=== PATIENT | male | born 1940 | race American Indian/Alaskan Native ===

== ENCOUNTER 2018-01-30 04:30 | Emergency (ER) | payer MEDICARE ==
[2018-01-30] MEDS ORDERED: TYLENOL ONE ×2 (04:47→09:48)
[2018-01-30] MEDS ORDERED: TYLENOL PO ONE (04:48)
--- NOTE | 2018-01-30 08:27 | Cat Scan Report ---
FINAL REPORT EXAM: CT HEAD/BRAIN WO CON HISTORY: OSORIO, Htn. TECHNIQUE: CT imaging is acquired through the brain without contrast. Transaxial reformations are provided. PRIORS: None. FINDINGS: Ventricles and CSF spaces are proportionately enlarged, consistent with parenchymal atrophy. Scattered deep and subcortical white matter hypodense foci are confluent in some areas and are compatible with microvascular angiopathy. No acute intracranial hemorrhage or mass effect. No skull fracture. No significant abnormality within the imaged paranasal sinuses or mastoid air cells. IMPRESSION: No acute intracranial abnormality. 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
--- NOTE | 2018-01-30 09:03 | Emergency Department Report ---
Blank Doc - Documentation Documentation: This is a 78-year-old male here reports that he is having severe headache since yesterday, shortness of breath and pain is radiated on his legs. He reports this has been going on for 5 hours prior to coming to the emergency room. Pain is 10 out of 10 and achy tingly. He does have a history of back pain and headache. He is also complaining of visual problems. He has a history of migraine headaches, hypertension and asthma. Patient does have a primary care physician. He denies any fever or chills. Denies any neck pain or stiffness. Denies any nausea or vomiting. Patient denies any head injury or fall. Physical exam Mini neurological :Patient is alert and oriented 3, GCS of 15. CV: S1, S2. Heart rate is at 59 bpm. He is a febrile and blood pressure is 190 /94 initially and now is 159/84. Lungs: CTAB with normal work of breathing Plan Patient to be seen by attendant physician in emergency room. Labs order CT scan This was discussed with patient that he is in agreement.
[2018-01-30] MEDS ORDERED: ZOFRAN IV ONE (09:19)
[2018-01-30] MEDS ORDERED: LASIX IV ONE (09:19)
[2018-01-30] MEDS ORDERED: MORPHINE IV ONE (09:19)
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
--- NOTE | 2018-01-30 09:40 | XRay Report ---
FINAL REPORT EXAM: XR CHEST ROUTINE 2V HISTORY: SOB TECHNIQUE: Frontal and lateral views of the chest. PRIORS: None currently available. FINDINGS: Mild cardiomegaly. Aortic calcifications. Lungs appear hyperinflated and may be related to reactive airway disease or COPD. No pneumothorax. No consolidation. No effusion. There are no suspicious osseous lesions. Degenerative changes are present within the spine. IMPRESSION: COPD. Otherwise, no acute cardiopulmonary findings. Mild cardiomegaly.
[2018-01-30 10:58] LABS: Hematocrit 43.7 % (35.5-45.6); Hemoglobin 14.6 gm/dl (11.8-15.2); Mean Corpuscular HGB Conc 34 % (32-34); Mean Corpuscular Hemoglobin 28 pg (28-32); Mean Corpuscular Volume 83 fl (84-94); Platelet Count 146 K/mm3 (140-440); Red Blood Count 5.25 M/mm3 (3.65-5.03); Red Cell Distribution Width 15.4 % (13.2-15.2)
[2018-01-30 11:06] LABS: Basophils # (Auto) 0.1 K/mm3 (0.0-0.1); Basophils % (Auto) 0.8 % (0.0-1.8); Eosinophils # (Auto) 0.2 K/mm3 (0.0-0.4); Eosinophils % (Auto) 2.4 % (0.0-4.3); Lymphocytes # (Auto) 1.4 K/mm3 (1.2-5.4); Lymphocytes % (Auto) 19.8 % (13.4-35.0); Monocytes # (Auto) 0.6 K/mm3 (0.0-0.8); Monocytes % (Auto) 8.8 % (0.0-7.3)
[2018-01-30 11:17] LABS: Alanine Aminotransferase 19 units/L (7-56); Albumin 4.2 g/dL (3.9-5); BUN/Creatinine Ratio 13; Blood Urea Nitrogen 10 mg/dL (9-20); Calcium 9.1 mg/dL (8.4-10.2); Hemolysis Index 6
[2018-01-30 12:21] VITALS: BP 155/90
== END 2018-01-30 13:00 | disposition home or self-care (01) ==
LOC: ED 04:30
DX: R51 Headache (principal); R06.02 Shortness of breath; I10 Essential (primary) hypertension; J45.909 Unspecified asthma, uncomplicated
CPT/HCPCS: 36415; 70450; 71046; 80053; 83735; 83880; 84484; 85025; 93005; 93010; 96374; 96375; 99284; J1940; J2270; J2405

== ENCOUNTER 2021-06-10 07:35 | Emergency (ER) | payer MEDICARE ==
[2021-06-10] MEDS ORDERED: FAMOTIDINE 20 MG/2 ML INJ IV ONE (07:44)
--- NOTE | 2021-06-10 07:48 | Emergency Department Report ---
HPI - General Chief Complaint: Allergic Reaction Time Seen by Provider: 06/10/21 07:44 - HPI HPI: Patient presents by EMS secondary to an allergic reaction. He takes lisinopril. He took his regular lisinopril dose last night. This morning he woke up with swelling in the tongue and lip. He was concerned that this might be reaction to his medication. There was no known allergen exposure otherwise. He had not changed foods. There was no change in laundry soap or bath soap. He had not used any type of new product. There was no new pet exposure. EMS was called. They transported the patient. During transport, they did administer epinephrine as well as Benadryl. Patient states that he feels slightly better upon arrival. He has no difficulty breathing. He does not feel short of breath. He states he is not wheezing. He however did state that he used his inhaler this morning. ED Past Medical Hx - Past Medical History Hx Hypertension: Yes Hx Headaches / Migraines: Yes Hx Asthma: Yes - Family History Family history: hypertension - Social History Smoking Status: Never Smoker Substance Use Type: None - Medications Home Medications: Home Medications Medication Instructions Recorded Confirmed Last Taken Type Ondansetron [Zofran Odt] 4 mg PO Q8HR PRN #14 tab.rapdis 01/30/18 Unknown Rx traMADoL [Ultram] 50 mg PO Q6HR PRN #14 tablet 01/30/18 Unknown Rx traMADoL [Ultram] 50 mg PO Q6HR PRN #14 tablet 01/30/18 Unknown Rx Amlodipine Besylate [Norvasc] 5 mg PO DAILY #30 tablet 06/10/21 Unknown Rx Famotidine [Pepcid] 20 mg PO BID #10 tablet 06/10/21 Unknown Rx Prednisone [predniSONE 10 mg 10 mg PO .TAPER #1 tab.ds.pk 06/10/21 Unknown Rx (6-Day Pack, 21 Tabs)] ED Review of Systems ROS: Stated complaint: ALLERGIC REACTION Other details as noted in HPI Comment: All other systems reviewed and negative Constitutional: denies: fever Eyes: denies: eye pain ENT: as per HPI. denies: throat pain Respiratory: denies: cough Cardiovascular: denies: chest pain Endocrine: denies: unexplained weight loss Gastrointestinal: denies: abdominal pain Genitourinary: denies: dysuria Musculoskeletal: denies: back pain Skin: denies: rash Neurological: denies: headache Hematological/Lymphatic: denies: easy bruising Physical Exam - Physical Exam Vital Signs: Vital Signs 06/10/21 07:41 Pulse Rate 79 Respiratory 15 Rate Blood Pressure 165/88 [Left] O2 Sat by Pulse 99 Oximetry General: Well-developed, well-nourished male in no distress. He is cooperative. He appears his stated age. Physical Exam: HEENT: atraumatic. There is edema involving the left upper lip consistent with angioedema. There is angioedema involving the left lateral aspect of the tongue. Oropharynx is clear. There is no evidence of airway compromise. There is no purulent drainage. Pupils were equal round reactive to light. Extraocular muscles are intact. There is no scleral icterus. Ears appear normal. Neck: Supple without stridor or lymphadenopathy. Heart: Regular rate and rhythm. Lungs: Clear bilaterally. Abdomen: Soft and nontender. It is protuberant. There is no organomegaly. There is no pulsatile mass. Back: No CVA tenderness. Extremities: 2+ pitting edema bilaterally. No calf tenderness. Pulses are equal and symmetric. No rash. Skin: No petechial or purpuric rash Neurologic: Patient is awake and appropriate. He is oriented x3. There is no gross focal motor or sensory deficits. He has no pronator drift or dysdiadochokinesia. ED Course Vital Signs 06/10/21 07:41 Pulse Rate 79 Respiratory 15 Rate Blood Pressure 165/88 [Left] O2 Sat by Pulse 99 Oximetry - Reevaluation(s) Reevaluation #1: 06/10/21 07:35 EMS was met upon arrival. IV had been started. Medications were ordered. Old records reviewed. Reevaluation #2: 06/10/21 10:16 There was no further decompensation or swelling. Patient was discharged ED Medical Decision Making - Medical Decision Making patient presented with angioedema secondary to RENAY inhibitor. This is a presumption, but the patient has no other allergen exposure. At this time, patient will be discharged. There is no evidence of airway compromise. We have discussed outpatient management. Patient will be taken off of his lisinopril. He is allergic to RENAY inhibitor is now and has been informed of this update. Critical Care Time: No Critical care attestation.: If time is entered above; I have spent that time in minutes in the direct care of this critically ill patient, excluding procedure time. 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 Do not take any RENAY inhibitor. Return for problems. Follow-up with your regular doctor for recheck. Avoid salt. Prescriptions: Amlodipine Besylate [Norvasc] 5 mg PO DAILY #30 tablet Famotidine [Pepcid] 20 mg PO BID #10 tablet Prednisone [predniSONE 10 mg (6-Day Pack, 21 Tabs)] 10 mg PO .TAPER #1 tab.ds.pk
[2021-06-10] MEDS ORDERED: methylPREDNISolone Sod Suc 125 MG in SODIUM CHLORIDE 0.9% 100 ML IV ONE (08:30)
[2021-06-10 10:54] VITALS: BP 133/78
== END 2021-06-10 11:10 | disposition home or self-care (01) ==
LOC: ED 07:35
DX: T78.3XXA Angioneurotic edema, initial encounter (principal); T46.4X5A Adverse effect of angiotensin-converting-enzyme inhibitors, initial encounter; I10 Essential (primary) hypertension; G43.909 Migraine, unspecified, not intractable, without status migrainosus; J45.909 Unspecified asthma, uncomplicated; Y92.89 Other specified places as the place of occurrence of the external cause
CPT/HCPCS: 96365; 96375; 99283; J2930; J3490

== ENCOUNTER 2021-07-12 22:04 | Observation (INO) | payer MEDICARE ==
--- NOTE | 2021-07-12 22:26 | Emergency Department Report ---
HPI - General Chief Complaint: Syncope Time Seen by Provider: 07/12/21 22:21 - HPI HPI: 81-year-old -[place]i male presents to the emergency department via EMS from home after the patient had a witnessed syncopal episode. He was playing darts with family when they saw him suddenly just collapsed. I took the initial EMS call and was told that the patient was only responsive to painful stimuli at that time. Upon arrival to the emergency department he is more awake and alert, oriented, AAO x3. He now just complains of shortness of breath. He has a history of seizures but says he has not had any seizure "in a long time." The patient was seen here about 1 month ago secondary to RENAY inhibitor induced angioedema. The patient does admit to drinking alcohol this evening but says that he did not do it in any excessive amount. He denies any illicit drug use. He is vaccinated for COVID-19. ED Past Medical Hx - Past Medical History Hx Hypertension: Yes Hx Headaches / Migraines: Yes Hx Asthma: Yes - Surgical History Past Surgical History?: No - Social History Smoking Status: Never Smoker Substance Use Type: None - Medications Home Medications: Home Medications Medication Instructions Recorded Confirmed Last Taken Type Ondansetron [Zofran Odt] 4 mg PO Q8HR PRN #14 tab.rapdis 01/30/18 Unknown Rx traMADoL [Ultram] 50 mg PO Q6HR PRN #14 tablet 01/30/18 Unknown Rx traMADoL [Ultram] 50 mg PO Q6HR PRN #14 tablet 01/30/18 Unknown Rx Amlodipine Besylate [Norvasc] 5 mg PO DAILY #30 tablet 06/10/21 Unknown Rx Famotidine [Pepcid] 20 mg PO BID #10 tablet 06/10/21 Unknown Rx Prednisone [predniSONE 10 mg 10 mg PO .TAPER #1 tab.ds.pk 06/10/21 Unknown Rx (6-Day Pack, 21 Tabs)] ED Review of Systems ROS: Stated complaint: SYNCOPE Other details as noted in HPI Comment: All other systems reviewed and negative Constitutional: denies: chills, fever Eyes: denies: eye pain, vision change ENT: denies: ear pain, throat pain Respiratory: shortness of breath. denies: cough Cardiovascular: syncope. denies: chest pain Gastrointestinal: denies: abdominal pain, vomiting Genitourinary: denies: dysuria, discharge Musculoskeletal: denies: back pain, arthralgia Skin: denies: rash, lesions Neurological: denies: headache, numbness Physical Exam - Physical Exam Physical Exam: GENERAL: The patient is well-developed well-nourished. HENT: Normocephalic. Atraumatic. Patient has moist mucous membranes. EYES: Extraocular motions are intact. Pupils equal reactive to light bilaterally. NECK: Supple. Trachea is midline. CHEST/LUNGS: Coarse breath sounds. There is some tachypnea. HEART/CARDIOVASCULAR: Regular. There is no tachycardia. There is no murmur. ABDOMEN: Abdomen is soft, nontender. Patient has normal bowel sounds. There is no abdominal distention. SKIN: Skin is warm and dry. NEURO: The patient appears fatigued but otherwise is awake, alert, oriented and cooperative. The patient has no focal neurologic deficits. Normal speech. Cranial nerves II through XII grossly intact. No facial asymmetry. MUSCULOSKELETAL: There is no tenderness or deformity. There is no limitation range of motion. ED Medical Decision Making - Lab Data Result diagrams: 07/12/21 23:06 07/12/21 23:06 Lab Results 07/12/21 07/12/21 07/12/21 Range/Units 23:06 23:06 23:06 WBC 9.5 (4.5-11.0) K/mm3 RBC 4.77 (3.65-5.03) M/mm3 Hgb 12.7 (11.8-15.2) gm/dl Hct 40.2 (35.5-45.6) % MCV 84 (84-94) fl MCH 27 L (28-32) pg MCHC 32 (32-34) % RDW 15.0 (13.2-15.2) % Plt Count 240 (140-440) K/mm3 Lymph % (Auto) 17.3 (13.4-35.0) % [place] % (Auto) 6.5 (0.0-7.3) % Eos % (Auto) 0.7 (0.0-4.3) % Baso % (Auto) 0.7 (0.0-1.8) % Lymph # (Auto) 1.6 (1.2-5.4) K/mm3 [place] # (Auto) 0.6 (0.0-0.8) K/mm3 Eos # (Auto) 0.1 (0.0-0.4) K/mm3 Baso # (Auto) 0.1 (0.0-0.1) K/mm3 Seg Neutrophils % 74.8 H (40.0-70.0) % Seg Neutrophils # 7.1 (1.8-7.7) K/mm3 D-Dimer 459.71 H (0-234) ng/mlDDU Sodium 141 (137-145) mmol/L Potassium 3.8 (3.6-5.0) mmol/L Chloride 100.1 (98-107) mmol/L Carbon Dioxide 25 (22-30) mmol/L Anion Gap 20 mmol/L BUN 13 (9-20) mg/dL Creatinine 1.3 (0.8-1.3) mg/dL Estimated GFR > 60 ml/min BUN/Creatinine Ratio 10 % Glucose 135 H (75-100) mg/dL Calcium 10.1 (8.4-10.2) mg/dL Total Bilirubin < 0.20 (0.1-1.2) mg/dL AST 19 (5-40) units/L ALT 20 (7-56) units/L Alkaline Phosphatase 82 (35-129) units/L Ammonia (25-60) umol/L Troponin T < 0.010 (0.00-0.029) ng/mL NT-Pro-B Natriuret Pep (0-900) pg/mL Total Protein 6.7 (6.3-8.2) g/dL Albumin 4.2 (3.9-5) g/dL Albumin/Globulin Ratio 1.7 % TSH (0.270-4.200) mlU/mL Free T4 (0.76-1.46) ng/dL Plasma/Serum Alcohol (0-0.07) % 07/12/21 07/12/21 07/12/21 Range/Units 23:06 23:06 23:06 WBC (4.5-11.0) K/mm3 RBC (3.65-5.03) M/mm3 Hgb (11.8-15.2) gm/dl Hct (35.5-45.6) % MCV (84-94) fl MCH (28-32) pg MCHC (32-34) % RDW (13.2-15.2) % Plt Count (140-440) K/mm3 Lymph % (Auto) (13.4-35.0) % [place] % (Auto) (0.0-7.3) % Eos % (Auto) (0.0-4.3) % Baso % (Auto) (0.0-1.8) % Lymph # (Auto) (1.2-5.4) K/mm3 [place] # (Auto) (0.0-0.8) K/mm3 Eos # (Auto) (0.0-0.4) K/mm3 Baso # (Auto) (0.0-0.1) K/mm3 Seg Neutrophils % (40.0-70.0) % Seg Neutrophils # (1.8-7.7) K/mm3 D-Dimer (0-234) ng/mlDDU Sodium (137-145) mmol/L Potassium (3.6-5.0) mmol/L Chloride (98-107) mmol/L Carbon Dioxide (22-30) mmol/L Anion Gap mmol/L BUN (9-20) mg/dL Creatinine (0.8-1.3) mg/dL Estimated GFR ml/min BUN/Creatinine Ratio % Glucose (75-100) mg/dL Calcium (8.4-10.2) mg/dL Total Bilirubin (0.1-1.2) mg/dL AST (5-40) units/L ALT (7-56) units/L Alkaline Phosphatase (35-129) units/L Ammonia 18.0 L (25-60) umol/L Troponin T (0.00-0.029) ng/mL NT-Pro-B Natriuret Pep 67.33 (0-900) pg/mL Total Protein (6.3-8.2) g/dL Albumin (3.9-5) g/dL Albumin/Globulin Ratio % TSH 11.170 H (0.270-4.200) mlU/mL Free T4 (0.76-1.46) ng/dL Plasma/Serum Alcohol (0-0.07) % 07/12/21 07/13/21 Range/Units 23:06 00:21 WBC (4.5-11.0) K/mm3 RBC (3.65-5.03) M/mm3 Hgb (11.8-15.2) gm/dl Hct (35.5-45.6) % MCV (84-94) fl MCH (28-32) pg MCHC (32-34) % RDW (13.2-15.2) % Plt Count (140-440) K/mm3 Lymph % (Auto) (13.4-35.0) % [place] % (Auto) (0.0-7.3) % Eos % (Auto) (0.0-4.3) % Baso % (Auto) (0.0-1.8) % Lymph # (Auto) (1.2-5.4) K/mm3 [place] # (Auto) (0.0-0.8) K/mm3 Eos # (Auto) (0.0-0.4) K/mm3 Baso # (Auto) (0.0-0.1) K/mm3 Seg Neutrophils % (40.0-70.0) % Seg Neutrophils # (1.8-7.7) K/mm3 D-Dimer (0-234) ng/mlDDU Sodium (137-145) mmol/L Potassium (3.6-5.0) mmol/L Chloride (98-107) mmol/L Carbon Dioxide (22-30) mmol/L Anion Gap mmol/L BUN (9-20) mg/dL Creatinine (0.8-1.3) mg/dL Estimated GFR ml/min BUN/Creatinine Ratio % Glucose (75-100) mg/dL Calcium (8.4-10.2) mg/dL Total Bilirubin (0.1-1.2) mg/dL AST (5-40) units/L ALT (7-56) units/L Alkaline Phosphatase (35-129) units/L Ammonia (25-60) umol/L Troponin T (0.00-0.029) ng/mL NT-Pro-B Natriuret Pep (0-900) pg/mL Total Protein (6.3-8.2) g/dL Albumin (3.9-5) g/dL Albumin/Globulin Ratio % TSH (0.270-4.200) mlU/mL Free T4 0.86 (0.76-1.46) ng/dL Plasma/Serum Alcohol 0.04 (0-0.07) % - EKG Data -: EKG Interpreted by Nv EKG shows normal: sinus rhythm (PVCs), axis, intervals, QRS complexes, ST-T waves Rate: normal - EKG Data When compared to previous EKG there are: no significant change Interpretation: unchanged when compared t (01/30/18) - Radiology Data Radiology results: report reviewed CHEST 1 VIEW 07/12/2021 10:42 PM INDICATION / CLINICAL INFORMATION: SOB. COMPARISON: 01/30/2022 FINDINGS: SUPPORT DEVICES: None. HEART / MEDIASTINUM: No significant abnormality. LUNGS / PLEURA: No significant pulmonary or pleural abnormality. No pneumothorax. ADDITIONAL FINDINGS: No significant additional findings. IMPRESSION: 1. No acute findings. CT HEAD WITHOUT CONTRAST INDICATION / CLINICAL INFORMATION: Syncope. TECHNIQUE: All CT scans at this location are performed using CT dose reduction for ALARA by means of automated exposure control. COMPARISON: 01/30/2018 FIN DINGS: Ventricles are normal in size without midline shift or mass effect. No acute intracranial hemorrhage. Schuster-white matter differentiation appears normal. Mild artifact throughout the examination visualized sinuses are clear. ADDITIONAL FINDINGS: None. IMPRESSION: 1. No acute intracranial abnormality. Nonspecific white matter change in periventricular and central white matter CTA CHEST WITH CONTRAST INDICATION / CLINICAL INFORMATION: Syncope, elevated dimer OMNI 350 100 ML. TECHNIQUE: Axial CT images were obtained through the chest after injection of IV contrast. 3 plane MIP and/or 3D reconstructions were produced. All CT scans at this location are performed using CT dose reduction for ALARA by means of automated exposure control. COMPARISON: None available. FINDINGS: Pulmonary arteries are patent without filling defect or evidence for PTE. There is dense opacification and densities within bilateral lower lungs and right middle lobe. Some nodular densities appear to represent infiltrates infection. Fluid/thickening of the distal esophagus ADDITIONAL FINDINGS: None. UPPER ABDOMEN: No acute findings. SKELETAL STRUCTURES: No significant osseous abnormality. IMPRESSION: 1. No CT evidence for pulmonary embolism. 2. Bilateral lower lobe infiltrates left greater than right - Medical Decision Making This patient initially presented to the emergency department after he had a witnessed syncopal episode and was "unresponsive" in route with EMS. However, by the time he arrived to our emergency department the patient is awake and oriented, although he does still appear somewhat groggy. On examination he does not have any focal, motor or sensory deficits and his cranial nerves are intact. CT scan of the head without contrast does not show any hemorrhage, large vessel occlusion, or any other acute process. Chest x-ray does not show any pneumonia, pleural effusions, pneumothorax, widened mediastinum, or any other acute process. EKG does not show any morphology consistent with ST elevation myocardial infarction. All of a sudden the patient began saying that he was feeling short of breath. He was reevaluated and he did have bronchospasm. There was mild wheezing and some tachypnea. A dose of Decadron was ordered, as well as a nebulized breathing treatment with both albuterol and Atrovent. After completion of the nebulized treatment, the patient's respiratory status has somewhat improved. Labs have been mostly unremarkable except for an elevated and equivocal D-dimer level, and an elevated TSH level of about 11. With the unresponsive episode, shortness of breath, and elevated D-dimer level, the patient had a CT angiography of the chest. CT angiography of the chest shows bilateral basilar infiltrates concerning for pneumonia. Blood cultures have been sent and the patient has been started on antibiotics. Given the patient's advanced age and this unresponsive/syncopal episode, he will be admitted to the hospital for further evaluation and treatment. Despite the fact that the patient has been vaccinated for COVID-19, with the CT angiography findings and his episode of shortness of breath, the patient will be tested for COVID-19. He has been accepted for admission by the hospitalist, Dr. Ayala. Critical Care Time: No Critical care attestation.: If time is entered above; I have spent that time in minutes in the direct care of this critically ill patient, excluding procedure time. ED Disposition Clinical Impression: Syncope and collapse, Acute dyspnea, Suspected 2019 novel coronavirus infection Pneumonia Qualifiers: Pneumonia type: due to unspecified organism Laterality: bilateral Lung location: lower lobe of lung Qualified Code(s): J18.9 - Pneumonia, unspecified organism Disposition: ADMITTED INPATIENT Is pt being admited?: Yes Condition: Serious Time of Disposition: 03:08
--- NOTE | 2021-07-12 22:51 | Cat Scan Report ---
CT HEAD WITHOUT CONTRAST INDICATION / CLINICAL INFORMATION: Syncope. TECHNIQUE: All CT scans at this location are performed using CT dose reduction for ALARA by means of automated e xposure control. COMPARISON: 01/30/2018 FINDINGS: Ventricles are normal in size without midline shift or mass effect. No acute intracranial hemorrhage. Schuster-white matter differentiation appears normal. Mild artifact throughout the examination visualize d sinuses are clear. ADDITIONAL FINDINGS: None. IMPRESSION: 1. No acute intracranial abnormality. Nonspecific white matter change in periventricular and central white matter Signer Name: Carroll Still MD Signed: 07/12/2021 10:46 PM Workstation Name: [id number]
--- NOTE | 2021-07-12 23:11 | XRay Report ---
CHEST 1 VIEW 07/12/2021 10:42 PM INDICATION / CLINICAL INFORMATION: SOB. COMPARISON: 01/30/2022 FINDINGS: SUPPORT DEVICES: None. HEART / MEDIASTINUM: No significant abnormality. LUNGS / PLEURA: No significant pulmonary or pleural abnormality. No pneumothorax. ADDITIONAL FINDINGS: No significant additional findings. IMPRESSION: 1. No acute findings. Signer Name: Carroll Still MD Signed: 07/12/2021 11:06 PM Workstation Name: [id number]
[2021-07-12 23:43] LABS: Basophils # (Auto) 0.1 K/mm3 (0.0-0.1); Basophils % (Auto) 0.7 % (0.0-1.8); Eosinophils # (Auto) 0.1 K/mm3 (0.0-0.4); Eosinophils % (Auto) 0.7 % (0.0-4.3); Hematocrit 40.2 % (35.5-45.6); Hemoglobin 12.7 gm/dl (11.8-15.2); Lymphocytes # (Auto) 1.6 K/mm3 (1.2-5.4); Lymphocytes % (Auto) 17.3 % (13.4-35.0); Mean Corpuscular HGB Conc 32 % (32-34); Mean Corpuscular Volume 84 fl (84-94); Monocytes # (Auto) 0.6 K/mm3 (0.0-0.8); Monocytes % (Auto) 6.5 % (0.0-7.3); Platelet Count 240 K/mm3 (140-440); Red Blood Count 4.77 M/mm3 (3.65-5.03)
[2021-07-13 00:41] LABS: Alanine Aminotransferase 20 units/L (7-56); Albumin 4.2 g/dL (3.9-5); BUN/Creatinine Ratio 10; Blood Urea Nitrogen 13 mg/dL (9-20); Calcium 10.1 mg/dL (8.4-10.2); Hemolysis Index 28
[2021-07-13] MEDS ORDERED: IPRATROPIUM 0.02% NEBU 2.5 ML IH ONE (00:55)
[2021-07-13] MEDS ORDERED: ALBUTEROL 2.5 MG/3 ML NEBU IH ONE (00:55)
[2021-07-13] MEDS ORDERED: SODIUM CHLORIDE 0.9% 1000 ML 1,000 ML IV ONE (01:20)
[2021-07-13] MEDS ORDERED: SODIUM CHLORIDE 0.9% 1000 ML 1,000 ML ONE (01:20)
--- NOTE | 2021-07-13 03:03 | Cat Scan Report ---
CTA CHEST WITH CONTRAST INDICATION / CLINICAL INFORMATION: Syncope, elevated dimer OMNI 350 100 ML. TECHNIQUE: Axial CT images were obtained through the chest after injection of IV contrast. [address] P and/or 3D reconstructions were produced. All CT scans at this location are performed using CT dose reduction for ALARA by means of automated exposure control. COMPARISON: None available. FINDINGS: Pulmonary arteries are patent without filling defect or evidence for PTE. There is dense opacificatio n and densities within bilateral lower lungs and right middle lobe. Some nodular densities appear to represent infiltrates infection. Fluid/thickening of the distal esophagus ADDITIONAL FINDINGS: None. UPPER ABDOMEN: No acute findings. SKELETAL STRUCTURES: No significant osseous abnormality. IMPRESSION: 1. No CT evidence for pulmonary embolism. 2. Bilateral lower lobe infiltrates left greater than right Signer Name: Carroll Still MD Signed: 07/13/2021 2:58 AM Workstation Name: [id number]
[2021-07-13] MEDS ORDERED: dexAMETHasone 4 MG/ML VIAL IV ONE (03:06)
[2021-07-13] MEDS ORDERED: cefTRIAXone/NS 1 GM/50 ML 1 GM/50 ML BAG IV ONE (03:06)
[2021-07-13] MEDS ORDERED: ACETAMINOPHEN 325 MG TAB PO PRN (03:19)
[2021-07-13] MEDS ORDERED: MORPHINE 4 MG/1 ML INJ IV PRN (03:19)
[2021-07-13] MEDS ORDERED: MAGNESIUM HYDROXIDE (MOM) ORAL LIQD UDC PO PRN (03:19)
[2021-07-13] MEDS ORDERED: MORPHINE 2 MG/1 ML INJ IV PRN (03:19)
[2021-07-13] MEDS ORDERED: ONDANSETRON 4 MG/2 ML INJ IV PRN (03:19)
[2021-07-13] MEDS ORDERED: SODIUM CHLORIDE 0.9% 1000 ML 1,000 ML IV SCH (03:30)
--- NOTE | 2021-07-13 03:31 | History and Physical Report ---
History of Present Illness Date of examination: 07/13/21 Date of admission: 07/13/2021 Chief complaint: Syncope History of present illness: 81-year-old -[place] male with known history of seizure disorder, hypertension and asthma brought into the emergency room by EMS for evaluation of syncope. Patient was said to be playing with family when he suddenly collapsed. Upon arrival of EMS, patient was more alert and oriented and he complained of shortness of breath. Patient states he has not had any seizure activity in a long time. Patient was seen here few weeks ago for RENAY inhibitor induced angioedema. He denies any fever or chills, no nausea vomiting, no abdominal pain. Denies any chest pain, no headache or dizziness and no diaphoresis. Patient denies any sick contacts and no recent travel. Denies any contact with anyone with COVID- 19. Patient has been vaccinated against COVID-19. He admits that he has some alcohol earlier this evening. Work-up in the emergency room today, significant findings were that of mildly elevated D-dimer of 459. Chest x-ray shows no acute findings. CT angiogram of the chest shows bilateral lower lobe infiltrates left greater than right. Past History Past Medical History: hypertension, migraines, other (Asthma) Past Surgical History: No surgical history Social history: no significant social history Family history: no significant family history Medications and Allergies Allergies Allergy/AdvReac Type Severity Reaction Status Date / Time lisinopril Allergy Angioedema Verified 06/10/21 07:49 Home Medications Medication Instructions Recorded Confirmed Last Taken Type Ondansetron [Zofran Odt] 4 mg PO Q8HR PRN #14 tab.rapdis 01/30/18 Unknown Rx traMADoL [Ultram] 50 mg PO Q6HR PRN #14 tablet 01/30/18 Unknown Rx traMADoL [Ultram] 50 mg PO Q6HR PRN #14 tablet 01/30/18 Unknown Rx Amlodipine Besylate [Norvasc] 5 mg PO DAILY #30 tablet 06/10/21 Unknown Rx Famotidine [Pepcid] 20 mg PO BID #10 tablet 06/10/21 Unknown Rx Prednisone [predniSONE 10 mg 10 mg PO .TAPER #1 tab.ds.pk 06/10/21 Unknown Rx (6-Day Pack, 21 Tabs)] Active Meds: Active Medications Ceftriaxone Sodium (Rocephin/Ns 1 Gm/50 Ml) 1 gm in 50 mls @ 100 mls/hr IV ONCE ONE; Protocol Stop: 07/13/21 03:35 Review of Systems Constitutional: no fever, no chills Ears, nose, mouth and throat: no nasal congestion, no sore throat Cardiovascular: no chest pain, no palpitations Respiratory: no cough, no shortness of breath Gastrointestinal: no abdominal pain, no nausea, no vomiting, no diarrhea Genitourinary Male: no dysuria, no hematuria, no flank pain, no nocturia Musculoskeletal: no neck pain, no low back pain Integumentary: no rash, no pruritis Neurological: no syncope, no headaches, no confusion Psychiatric: no anxiety, no depression Endocrine: no polyphagia, no polydipsia, no polyuria, no nocturia Exam - Constitutional Vitals: Temp Pulse Resp BP Pulse Ox 85 17 139/74 94 07/13/21 02:52 07/13/21 02:52 07/13/21 02:52 07/13/21 02:16 General appearance: Present: mild distress, well-nourished - EENT Eyes: Present: PERRL, EOM intact. Absent: scleral icterus ENT: hearing intact, clear oral mucosa, dentition normal - Neck Neck: Present: supple, normal ROM - Respiratory Respiratory effort: normal Respiratory: bilateral: diminished - Cardiovascular Rhythm: regular Heart Sounds: Present: S1 & S2, rub. Absent: gallop, systolic murmur, diastolic murmur - Extremities Extremities: no ischemia, pulses intact, pulses symmetrical, No edema, normal temperature, normal color, Full ROM Peripheral Pulses: within normal limits - Abdominal General gastrointestinal: Present: soft, non-tender, non-distended, normal bowel sounds. Absent: mass - Integumentary Integumentary: Present: clear, warm, dry. Absent: rash - Musculoskeletal Musculoskeletal: strength equal bilaterally - Psychiatric Psychiatric: appropriate mood/affect, intact judgment & insight, memory intact - Neurologic Neurologic: CNII-XII intact, no focal deficits, moves all extremities HEART Score - HEART Score Troponin: Troponin T < 0.010 ng/mL (0.00-0.029) 07/12/21 23:06 Results - Labs CBC & Chem 7: 07/12/21 23:06 07/12/21 23:06 Labs: Abnormal lab results 07/12/21 07/12/21 07/12/21 Range/Units 23:06 23:06 23:06 MCH 27 L (28-32) pg Seg Neutrophils % 74.8 H (40.0-70.0) % D-Dimer 459.71 H (0-234) ng/mlDDU Glucose 135 H (75-100) mg/dL Ammonia (25-60) umol/L TSH (0.270-4.200) mlU/mL 07/12/21 07/12/21 Range/Units 23:06 23:06 MCH (28-32) pg Seg Neutrophils % (40.0-70.0) % D-Dimer (0-234) ng/mlDDU Glucose (75-100) mg/dL Ammonia 18.0 L (25-60) umol/L TSH 11.170 H (0.270-4.200) mlU/mL Assessment and Plan - Patient Problems (1) Acute dyspnea Current Visit: Yes Status: Acute Plan to address problem: Possibly secondary to underlying pneumonia. We will keep O2 saturation greater or equal to 92%. (2) Pneumonia Current Visit: Yes Status: Acute Qualifiers: Pneumonia type: due to unspecified organism Laterality: bilateral Lung location: lower lobe of lung Qualified Code(s): J18.9 - Pneumonia, unspecified organism Plan to address problem: Patient commenced on empiric IV antibiotics. Will await culture results. We will also check for COVID-19. (3) Suspected 2019 novel coronavirus infection Current Visit: Yes Status: Acute Plan to address problem: Will await COVID-19 testing. (4) Syncope and collapse Current Visit: Yes Status: Acute (5) DVT prophylaxis Current Visit: Yes Status: Acute Plan to address problem: Patient placed on subcutaneous heparin. (6) Full code status Current Visit: Yes Status: Acute Plan to address problem: Patient is full code.
[2021-07-13 04:13] LABS: C-Reactive Protein 1.4 mg/dL (0.00-1.30)
[2021-07-13] MEDS ORDERED: AZITHROMYCIN/NS 500 MG/250 ML 500 MG/250 ML BAG IV SCH ×2 (06:00)
--- NOTE | 2021-07-13 08:16 | Event Note ---
Date: 07/13/21 Patient seen and examined, no new complaints. 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 Will obtain cardiology eval, I could not see the ekg strip showing Afib which the ambulance noted Will also obtain Nephrology eval due to the AMS noted Bilateral Infiltrate ?Aspiration Pneumonia in addition to rule out COVID19 Elevated D.dimer- No CTA evidence of PE Eval lower ext doppler
[2021-07-13] MEDS: amLODIPine 5 MG TAB PO SCH (10:48)
[2021-07-13] MEDS: FAMOTIDINE 20 MG TAB PO SCH ×2 (10:48→22:11)
[2021-07-13] MEDS: cefTRIAXone/NS 2 GM/100 ML 2 GM/100 ML BAG IV SCH (14:00)
--- NOTE | 2021-07-13 21:58 | Consultation ---
DATE OF CONSULTATION: 07/13/2021 HISTORY OF PRESENT ILLNESS: The patient is an 81-year-old male with a history of hypertension and asthma as well as venous insufficiency, who had a witnessed syncopal episode at home. He describes some near syncopal episodes in the recent past. He states that when he tries to do things he gets dizzy and diaphoretic. He does not describe any orthostatic symptoms, chest pain, palpitations or history of any previous type of heart disease. The blood pressure has been under fairly good control. It has been chronic and not too severe. He had a seizure disorder years ago. He did not describe any sleep disorders. PAST HISTORY: Hypertension, migraines, asthma. No history of smoking. He is known to Dr. Felix. He has chronic lower extremity swelling, and he has had venous insufficiency therapy at my office. He describes a negative cardiac workup in the past. ALLERGIES: LISINOPRIL, which caused angioedema. OPERATION: None. SOCIAL HISTORY: Smoking, none. Alcohol, no heavy use. MEDICATIONS: See the nurse's list. FAMILY HISTORY: Unremarkable. REVIEW OF SYSTEMS: No other complaints or medical problems. PHYSICAL EXAMINATION: GENERAL: Well developed, significantly overweight, no acute distress. Alert, oriented, cooperative mental status normal. EYES, NOSE, AND THROAT: Unremarkable. NECK: Supple, no masses. There is jugular venous distention. No bruits LUNGS: Diminished breath sounds, no rales or rhonchi. HEART: Regular rhythm. Grade 2 systolic murmur. S1 and S2 are diminished. ABDOMEN: Soft, nontender, no masses. EXTREMITIES: No cyanosis, clubbing. There is 1+ lower extremity edema. Pulses are intact, but diminished. NEUROLOGICAL: Symmetrical. DIAGNOSTIC DATA: EKG not available at the moment. IMPRESSION: 1. Syncope and episodes of near syncope: Rule out orthostatic hypotension, arrhythmias, aortic stenosis. 2. Abnormal chest x-ray. The patient has been treated for possible COVID pneumonia. He describes some mild congestion in recent past, but otherwise his pulmonary symptoms are chronic. 3. Hypertension. 4. Asthma. 5. Obesity. 6. Chronic venous insufficiency. 7. Systolic murmur. 8. History of migraines. PLAN: Review office records. Monitor rhythm. Check orthostatics, echocardiogram. Thanks for this consultation. TID: [id number] RECEIPT: [id number] BRODY/CIERRA
[2021-07-14 07:36] LABS: Basophils % (Auto) 0.1 % (0.0-1.8); Hematocrit 37.1 % (35.5-45.6); Hemoglobin 11.4 gm/dl (11.8-15.2); Lymphocytes # (Auto) 0.7 K/mm3 (1.2-5.4); Lymphocytes % (Auto) 5.9 % (13.4-35.0); Mean Corpuscular HGB Conc 31 % (32-34); Mean Corpuscular Volume 85 fl (84-94); Monocytes # (Auto) 0.7 K/mm3 (0.0-0.8); Platelet Count 188 K/mm3 (140-440); Red Blood Count 4.36 M/mm3 (3.65-5.03); Red Cell Distribution Width 14.5 % (13.2-15.2)
[2021-07-14 08:05] LABS: BUN/Creatinine Ratio 20; Blood Urea Nitrogen 24 mg/dL (9-20); Calcium 9.3 mg/dL (8.4-10.2); Hemolysis Index 2
--- NOTE | 2021-07-14 09:13 | Discharge Summary ---
Providers - Providers Date of Admission: 07/13/21 03:19 Attending physician: MARIANELA PALOMARES MD 07/13/21 03:19 Consult to Physician [CONS] Routine Comment: Consulting Provider: EDMOND MA Physician Instructions: Reason For Exam: PUI 07/13/21 08:14 Consult to Physician [CONS] Routine Comment: Consulting Provider: COLBY CELESTIN Physician Instructions: Reason For Exam: Syncope 07/13/21 09:04 Consult to Physician [CONS] Routine Comment: Consulting Provider: NIMA DUKES Physician Instructions: Reason For Exam: ?afib Primary care physician: EVELIO ARNDT Hospitalization Reason for admission: Syncope Condition: Good Hospital course: 81-year-old -Wallisian male with known history of seizure disorder, hypert ension and asthma brought into the emergency room by EMS for evaluation of syncope. Patient was said to be playing with family when he suddenly collapsed. Upon arrival of EMS, patient was more alert and oriented and he complained of shortness of breath. Patient states he has not had any seizure activity in a long time. Patient was seen here few weeks ago for RENAY inhibitor induced angioedema. He denies any fever or chills, no nausea vomiting, no abdominal pain. Denies any chest pain, no headache or dizziness and no diaphoresis. Patient denies any sick contacts and no recent travel. Denies any contact with anyone with COVID- 19. Patient has been vaccinated against COVID-19. He admits that he has some alcohol earlier this evening. Work-up in the emergency room today, significant findings were that of mildly elevated D-dimer of 459. Chest x-ray shows no acute findings. CT angiogram of the chest shows bilateral lower lobe infiltrates left greater than right. 07/14: Following evaluation done yesterday patient tested positive for Covid no further oxygen requirement at this time ambulatory oxygen needs assessment was done showing 93% with exertion. And over 96% on room air at rest. Cardiology was consulted to evaluate the patient I did not find a reference atrial fibrillation noted on the EMS documentation. I have recommended an outpatient follow-up with cardiology outpatient. I also discussed with the family they are aware of the COVID diagnosis patient will complete steroid treatment but at this time no indication for remdesivir. Patient will also follow with neurology due to altered mental status that was documented. His syncopal episode while this is happened many years ago in the past at this time could be related to systemic inflammatory response syndrome secondary to COVID-19 induced pneumonia. (1) Acute dyspnea Current Visit: Yes Status: Acute Plan to address problem: Possibly secondary to underlying pneumonia. We will keep O2 saturation greater or equal to 92%. (2) Pneumonia Current Visit: Yes Status: Acute Qualifiers: Pneumonia type: due to unspecified organism Laterality: bilateral Lung location: lower lobe of lung Qualified Code(s): J18.9 - Pneumonia, unspecified organism Plan to address problem: Patient commenced on empiric IV antibiotics. Will await culture results. We will also check for COVID-19. (3) 2019 novel coronavirus infection Current Visit: Yes Status: Acute Plan to address problem: Asymptomatic (4) autonomic disequilibrium syndrome Current Visit: Yes Status: Acute (5) systemic inflammatory response syndrome with no organ dysfunction (6) acute metabolic encephalopathy now is (7) morbid obesity counseling provided to the patient on weight loss modalities Disposition: HOME / SELF CARE / HOMELESS Final Discharge Diagnosis (Prints w/discharge instructions): covid 19. viral bilateral penumonia. dysequlirbrium syndrom secondary SIRS from covid induced pneumonia Time spent for discharge: 35-minute Core Measure Documentation - Palliative Care Palliative Care/ Comfort Measures: Not Applicable - Core Measures Any of the following diagnoses?: none Exam - Physical Exam Narrative exam: VITAL SIGNS: Reviewed. GENERAL: The patient appears normally developed, appropriate age in appearance morbidly obese vital signs as documented. HEAD: No signs of head trauma. EYES: Pupils are equal. Extraocular motions intact. EARS: Hearing grossly intact. MOUTH: Oropharynx is normal. NECK: No adenopathy, no JVD. CHEST: Chest with clear breath sounds bilaterally. No wheezes, rales, or rhonchi. CARDIAC: Regular rate and rhythm. S1 and S2, without murmurs, gallops, or rubs. VASCULAR: No Edema. Peripheral pulses normal and equal in all extremities. ABDOMEN: Soft, non tender and non distended. No rebound or guarding, and no masses palpated. Bowel Sounds normal. MUSCULOSKELETAL: Good range of motion of all major joints. Extremities without clubbing, cyanosis or edema. NEUROLOGIC EXAM: Alert and oriented x 3 No focal sensory or strength deficits. Speech normal. Follows commands. PSYCHIATRIC: Mood normal. SKIN: detail exam as documented in skin assessment - Constitutional Vitals: Temp Pulse Resp BP Pulse Ox 98.1 F 86 20 140/68 97 07/13/21 21:36 07/13/21 21:36 07/13/21 21:36 07/13/21 21:36 07/13/21 21:36 Plan Activity: advance as tolerated, fall precautions Diet: low fat Special Instructions: record daily weights, record daily BP diary Plan of Treatment: must comply with steroid therapy and cdc guidelines on isolation. Must follow with primary neurologist in 1 week or the neurologist we recommend if he does not have one. Follow up with: NIMA DUKES MD [Staff Physician] - 7 Days EVELIO ARNDT MD [Primary Care Provider] - 7 Days Prescriptions: dexAMETHasone [Dexamethasone] 6 mg PO DAILY #10 tab
[2021-07-14] MEDS: cefTRIAXone/NS 2 GM/100 ML 2 GM/100 ML BAG IV SCH (09:52)
[2021-07-14] MEDS: FAMOTIDINE 20 MG TAB PO SCH (09:53)
[2021-07-14] MEDS: amLODIPine 5 MG TAB PO SCH (09:55)
[2021-07-14] MEDS ORDERED: AZITHROMYCIN 250 MG TAB PO SCH (10:00)
[2021-07-14] MEDS ORDERED: DEXAMETHASONE 4 MG TAB PO SCH (10:00)
--- NOTE | 2021-07-14 10:27 | Consultation ---
History of Present Illness - Reason for Consult Consult date: 07/14/21 - History of Present Illness 81-year-old man past medical history of seizures, hypertension, asthma presented to hospital due to syncope. It was a witnessed episode when he was playing with his family, and had sudden collapse. He complained of shortness of breath after resolving his loss of consciousness. He had previously on many years without any seizure activity. He otherwise denies any other complaints presentation. He has been vaccinated against Covid. Afebrile white count 12.5. Covid positive. Normal procalcitonin, normal renal function. Very high TSH. Imaging personally viewed: Chest T: Bilateral lower lobe infiltrates. No evidence of pulmonary embolism Review of systems: Deferred to reduce to the risk of transmission of COVID-19 Past History Past Medical History: hypertension, migraines, other (Asthma) Past Surgical History: No surgical history Social history: no significant social history Family history: no significant family history Medications and Allergies Allergies Allergy/AdvReac Type Severity Reaction Status Date / Time lisinopril Allergy Angioedema Verified 06/10/21 07:49 Home Medications Medication Instructions Recorded Confirmed Last Taken Type Ondansetron [Zofran ODT TAB] 4 mg PO Q8HR PRN #14 tab.rapdis 01/30/18 1 Day Ago Rx ~07/12/21 traMADoL [Ultram 50 MG tab] 50 mg PO Q6HR PRN #14 tablet 01/30/18 Unknown Rx Amlodipine Besylate [Norvasc] 5 mg PO DAILY #30 tablet 06/10/21 1 Day Ago Rx ~07/12/21 Famotidine [Pepcid] 20 mg PO BID #10 tablet 06/10/21 1 Day Ago Rx ~07/12/21 dexAMETHasone [Dexamethasone] 6 mg PO DAILY #10 tab 07/14/21 Unknown Rx Active Meds: Active Medications Acetaminophen (Acetaminophen 325 Mg Tab) 650 mg PO Q4H PRN PRN Reason: Pain MILD(1-3)/Fever >100.5/OSORIO Amlodipine Besylate (Amlodipine 5 Mg Tab) 5 mg PO DAILY [facility] Last Admin: 07/14/21 09:55 Dose: 5 mg Azithromycin (Azithromycin 250 Mg Tab) 500 mg PO QDAY [facility] Stop: 07/17/21 10:01 Last Admin: 07/14/21 09:53 Dose: 500 mg Dexamethasone (Dexamethasone 4 Mg Tab) 8 mg PO DAILY [facility] Stop: 07/22/21 10:01 Last Admin: 07/14/21 09:53 Dose: 8 mg Famotidine (Famotidine 20 Mg Tab) 20 mg PO BID [facility] Last Admin: 07/14/21 09:53 Dose: 20 mg Sodium Chloride (Nacl 0.9% 1000 Ml) 1,000 mls @ 75 mls/hr IV DIRECT PIERCE Ceftriaxone Sodium (Rocephin/Ns 2 Gm/100 Ml) 2 gm in 100 mls @ 200 mls/hr IV Q24HR [facility]; Protocol Last Admin: 07/14/21 09:52 Dose: 200 mls/hr Magnesium Hydroxide (Magnesium Hydroxide (Mom) Oral Liqd Udc) 30 ml PO Q4H PRN PRN Reason: Constipation Morphine Sulfate (Morphine 2 Mg/1 Ml Inj) 2 mg IV Q4H PRN PRN Reason: Pain, Moderate (4-6) Morphine Sulfate (Morphine 4 Mg/1 Ml Inj) 4 mg IV Q4H PRN PRN Reason: Pain , Severe (7-10) Ondansetron HCl (Ondansetron 4 Mg/2 Ml Inj) 4 mg IV Q8H PRN PRN Reason: Nausea And Vomiting Sodium Chloride (Sodium Chloride 0.9% 10 Ml Flush Syringe) 10 ml IV BID [facility] Last Admin: 07/14/21 09:54 Dose: 10 ml Sodium Chloride (Sodium Chloride 0.9% 10 Ml Flush Syringe) 10 ml IV PRN PRN PRN Reason: LINE FLUSH Physical Examination - Physical Exam Narrative exam: Physical exam deferred to reduce risk of transmission of COVID-19. Please refer to primary team's note. - Constitutional Vitals: Vital Signs Temp Pulse Resp BP Pulse Ox 98.1 F 85 20 130/64 97 07/13/21 21:36 07/14/21 09:55 07/13/21 21:36 07/14/21 09:55 07/13/21 21:36 Temperature -Last 24 Hours Temperature 98.1 F Results - Labs CBC & Chem 7: 07/14/21 06:49 07/14/21 06:49 Labs: Abnormal lab results 07/13/21 07/14/21 07/14/21 Range/Units 09:15 06:49 06:49 WBC 12.5 H (4.5-11.0) K/mm3 Hgb 11.4 L (11.8-15.2) gm/dl MCH 26 L (28-32) pg MCHC 31 L (32-34) % Lymph % (Auto) 5.9 L (13.4-35.0) % Lymph # (Auto) 0.7 L (1.2-5.4) K/mm3 Seg Neutrophils % 88.0 H (40.0-70.0) % Seg Neutrophils # 11.0 H (1.8-7.7) K/mm3 BUN 24 H (9-20) mg/dL Glucose 143 H (75-100) mg/dL Coronavirus (PCR) Positive A (Negative) Assessment and Plan Cultures: COVID-19 PCR positive A/P: 81-year-old man past medical history of seizures, hypertension, asthma now: #Syncopal episode: Possibly from cardiac dysrhythmia, has no history of missed beats. #COVID-19: Asymptomatic, mild ultrasound CT. Not hypoxic, currently on room air. No need to treat. #Hypothyroidism: Should follow-up with primary care doctor versus retinal surgeon given very high TSH #Morbid obesity: Associated with worse COVID-19 outcomes Recs: -No need for acute treatment of COVID-19 is currently asymptomatic. -No need for antibiotics, normal procalcitonin. Thank you for the consult, we will continue to follow. MD Marie [facility] ([facility]) O: [phone] F: [phone]
--- NOTE | 2021-07-14 12:23 | Consultation ---
History of Present Illness Consult date: 07/14/21 Consult reason: syncope History of present illness: The patient is an 81-year-old man who presented to the hospital with syncope. A t the time of his presentation, his alcohol level was 0.04. Patient states that he was sitting at home playing a card game when the event occurred. He says he had only a couple of drinks prior and was not intoxicated. He reports no associated chest pain or shortness of breath and no associated palpitations. Work-up in the hospital so far the CTA of the lungs revealed no evidence of pulmonary embolism, but evidence of bilateral lower lobe infiltrates consistent with pneumonia. His COVID-19 test was also positive. He is admitted for treatment of COVID-19 pneumonia. Cardiology consultation was requested for further evaluation of a report of possible atrial fibrillation reported by the ash collector prior to hospital admission. My review of the chart showed no strips or EKGs from the field that will support a diagnosis of atrial fibrillation. The twelve-lead EKG in the hospital was in normal sinus rhythm at 71. Patient denies any known history of atrial fibrillation or prior use of anticoagulation therapy. His cardiac history is notable for previous episode of syncope 7 years ago, for which he underwent outpatient cardiac work-up with a tilt table test. Tilt table test at that time in 2013 was negative. On this presentation, echocardiogram shows normal left ventricular systolic ejection fraction 55 to 60%, with moderate sclerosis of the aortic valve leaflets and mild to moderate aortic stenosis, with a mean transaortic gradient of 14. Comorbidities include chronic hypertension and diabetes. Of note his blood sugar measurements on presentation with syncope was a well-controlled 135. Past History Past Medical History: diabetes, hypertension, migraines, other (Prior syncope in 2013) Past Surgical History: No surgical history Social history: no significant social history Family history: no significant family history Medications and Allergies Allergies Allergy/AdvReac Type Severity Reaction Status Date / Time lisinopril Allergy Angioedema Verified 06/10/21 07:49 Home Medications Medication Instructions Recorded Confirmed Last Taken Type Ondansetron [Zofran ODT TAB] 4 mg PO Q8HR PRN #14 tab.rapdis 01/30/18 1 Day Ago Rx ~07/12/21 traMADoL [Ultram 50 MG tab] 50 mg PO Q6HR PRN #14 tablet 01/30/18 Unknown Rx Amlodipine Besylate [Norvasc] 5 mg PO DAILY #30 tablet 06/10/21 1 Day Ago Rx ~07/12/21 Famotidine [Pepcid] 20 mg PO BID #10 tablet 06/10/21 1 Day Ago Rx ~07/12/21 dexAMETHasone [Dexamethasone] 6 mg PO DAILY #10 tab 07/14/21 Unknown Rx Active Meds: Active Medications Acetaminophen (Acetaminophen 325 Mg Tab) 650 mg PO Q4H PRN PRN Reason: Pain MILD(1-3)/Fever >100.5/OSORIO Amlodipine Besylate (Amlodipine 5 Mg Tab) 5 mg PO DAILY [facility] Last Admin: 07/14/21 09:55 Dose: 5 mg Azithromycin (Azithromycin 250 Mg Tab) 500 mg PO QDAY [facility] Stop: 07/17/21 10:01 Last Admin: 07/14/21 09:53 Dose: 500 mg Dexamethasone (Dexamethasone 4 Mg Tab) 8 mg PO DAILY [facility] Stop: 07/22/21 10:01 Last Admin: 07/14/21 09:53 Dose: 8 mg Famotidine (Famotidine 20 Mg Tab) 20 mg PO BID [facility] Last Admin: 07/14/21 09:53 Dose: 20 mg Sodium Chloride (Nacl 0.9% 1000 Ml) 1,000 mls @ 75 mls/hr IV [facility] Ceftriaxone Sodium (Rocephin/Ns 2 Gm/100 Ml) 2 gm in 100 mls @ 200 mls/hr IV Q24HR [facility]; Protocol Last Admin: 07/14/21 09:52 Dose: 200 mls/hr Magnesium Hydroxide (Magnesium Hydroxide (Mom) Oral Liqd Udc) 30 ml PO Q4H PRN PRN Reason: Constipation Morphine Sulfate (Morphine 2 Mg/1 Ml Inj) 2 mg IV Q4H PRN PRN Reason: Pain, Moderate (4-6) Morphine Sulfate (Morphine 4 Mg/1 Ml Inj) 4 mg IV Q4H PRN PRN Reason: Pain , Severe (7-10) Ondansetron HCl (Ondansetron 4 Mg/2 Ml Inj) 4 mg IV Q8H PRN PRN Reason: Nausea And Vomiting Sodium Chloride (Sodium Chloride 0.9% 10 Ml Flush Syringe) 10 ml IV BID [facility] Last Admin: 07/14/21 09:54 Dose: 10 ml Sodium Chloride (Sodium Chloride 0.9% 10 Ml Flush Syringe) 10 ml IV PRN PRN PRN Reason: LINE FLUSH Review of Systems Cardiovascular: syncope, shortness of breath, no chest pain, no orthopnea, no palpitations, no rapid/irregular heart beat, no edema, no lightheadedness Physical Examination Vital Signs Pulse Resp BP Pulse Ox 74 25 H 121/58 99 07/12/21 22:30 07/12/21 22:30 07/12/21 22:30 07/12/21 22:30 General appearance: no acute distress HEENT: Positive: PERRL Neck: Positive: neck supple Cardiac: Positive: Reg Rate and Rhythm Lungs: Positive: Decreased Breath Sounds Neuro: Positive: Grossly Intact Abdomen: Positive: Soft Male genitourinary: Positive: deferred Skin: Positive: Clear Extremities: Absent: edema Results 07/14/21 06:49 07/14/21 06:49 CBC 07/14/21 Range/Units 06:49 WBC 12.5 H (4.5-11.0) K/mm3 RBC 4.36 (3.65-5.03) M/mm3 Hgb 11.4 L (11.8-15.2) gm/dl Hct 37.1 (35.5-45.6) % Plt Count 188 (140-440) K/mm3 Lymph # (Auto) 0.7 L (1.2-5.4) K/mm3 [place] # (Auto) 0.7 (0.0-0.8) K/mm3 Eos # (Auto) 0.0 (0.0-0.4) K/mm3 Baso # (Auto) 0.0 (0.0-0.1) K/mm3 Comprehensive Metabolic Panel 07/14/21 Range/Units 06:49 Sodium 142 (137-145) mmol/L Potassium 4.3 (3.6-5.0) mmol/L Chloride 105.2 (98-107) mmol/L Carbon Dioxide 25 (22-30) mmol/L BUN 24 H (9-20) mg/dL Creatinine 1.2 (0.8-1.3) mg/dL Glucose 143 H (75-100) mg/dL Calcium 9.3 (8.4-10.2) mg/dL EKG interpretations - Telemetry EKG Rhythm: Sinus Rhythm Assessment and Plan - Patient Problems (1) Syncope Current Visit: No Status: Acute Plan to address problem: Patient presented with syncope at rest, no associated symptoms. History of a previous syncope 7 years ago with negative cardiac work-up. On the current presentation, cardiac rhythm is a stable sinus rhythm. No atrial fibrillation is seen on telemetry strips, or ECGs that are currently available. Echocardiogram demonstrates normal left ventricular systolic function, with only mild to moderate aortic stenosis. Neurologic work-up is in progress, continue telemetry monitoring. We will continue conservative cardiac approach to management, pending review of outpatient cardiac records.
[2021-07-14 12:50] VITALS: BP 134/57
--- NOTE | 2021-07-14 14:09 | Vascular Lab Report ---
DUPLEX DOPPLER LOWER EXTREMITY VEINS, BILATERAL INDICATION / CLINICAL INFORMATION: DVT. Syncope. TECHNIQUE: Duplex doppler imaging was performed through the veins of both lower extremities using eagle ous compression and other maneuvers. COMPARISON: None available. FINDINGS: RIGHT COMMON FEMORAL VEIN: Negative. RIGHT FEMORAL VEIN: Negative. RIGHT POPLITEAL VEIN: Negative. RIGHT CALF VEINS: Negative. LEFT COMMON FEMORAL VEIN: Negative. LEFT FEMORAL VEIN: Negative. LEFT POPLITEAL VEIN: Negative. LEFT CALF VEINS: Negative. ADDITIONAL FINDINGS: None. IMPRESSION: 1. No sonographic evidence for DVT in either lower extremity. Signer Name: Brandyn Mccoy MD Signed: 07/14/2021 2:04 PM Workstation Name: [employer]
--- NOTE | 2021-07-17 13:24 | Electrocardiograph Report ---
[facility] Test Date: 2021-07-12 Test Time: 23:01:29 Pat Name: SHOSHANA DELAROSA Department: Room: A354 Gender: M Management Services Technician: BRENDA : 1940 Requested By: BILL SORIA Order Number: [id number] Reading MD: Ankur Middleton Measurements Intervals [place] Rate: 71 P: 112 MA: 179 QRS: 62 QRSD: 91 T: 70 QT: 446 QTc: 484 Interpretive Statements Sinus rhythm Poor quality ECG No previous ECG available for comparison Electronically Signed On 07-17-2021 13:24:15 EST by Ankur Middleton
== END 2021-07-14 13:47 | disposition home or self-care (01) ==
LOC: ED 22:04 → 3A 07-13 03:19
PROVIDERS: ADMIT Internal Medicine Geriatric Medicine; ATTEND Internal Medicine
DX: U07.1 COVID-19 (principal); J12.82 Pneumonia due to coronavirus disease 2019; G93.40 Encephalopathy, unspecified; R06.00 Dyspnea, unspecified; R55 Syncope and collapse; I10 Essential (primary) hypertension; G43.909 Migraine, unspecified, not intractable, without status migrainosus; J45.909 Unspecified asthma, uncomplicated; E03.9 Hypothyroidism, unspecified; E11.9 Type 2 diabetes mellitus without complications; E66.01 Morbid (severe) obesity due to excess calories; E87.8 Other disorders of electrolyte and fluid balance, not elsewhere classified; R65.10 Systemic inflammatory response syndrome (SIRS) of non-infectious origin without acute organ dysfunction; I87.2 Venous insufficiency (chronic) (peripheral); Z68.45 Body mass index [BMI] 70 or greater, adult; Z79.899 Other long term (current) drug therapy; Z98.890 Other specified postprocedural states
CPT/HCPCS: 36415; 70450; 71045; 71275; 80048; 80053; 82140; 82728; 83615; 83880; 84145; 84439; 84443; 84484; 85025; 85379; 86140; 87040; 93005; 93010; 93306; 93970; 94644; 96361; 96365; 96366; 96367; 96375; 99285; G0378; J0456; J0696; J1100; J7030; J8540; Q9967; U0003; 80320; Q0162; G0480